=== PATIENT | female | born 1995 | race Caucasian/White ===

== ENCOUNTER 2018-09-15 21:30 | Emergency (ER) | payer SELFPAY ==
[2018-09-15 21:51] VITALS: BP 112/71
[2018-09-15] MEDS ORDERED: ACETAMINOPHEN 500 MG TAB PO ONE (22:07)
[2018-09-15] MEDS ORDERED: IBUPROFEN 800 MG TAB PO ONE (22:08)
[2018-09-15] MEDS ORDERED: CYCLOBENZAPRINE 10 MG TAB PO ONE (22:08)
--- NOTE | 2018-09-15 22:12 | EDPHY ---
H & P Time Seen by Provider: 09/15/18 21:38 HPI/ROS: CHIEF COMPLAINT: Back pain History by patient HISTORY OF PRESENT ILLNESS: 22-year-old woman presents with acute onset left- sided back pain which began yesterday when she lifted a bag of heavy lo litter. She took some ibuprofen and seemed controllable but tonight when she bent down it became much more severe and she could not get comfortable. Pain radiates somewhat into her buttock and left hip. She denies any focal numbness weakness or tingling. There is no electric shock the or shooting pains below her knee. There is no loss of bowel or bladder control. She denies any fever, dysuria urgency frequency or hematuria. She has had a similar episode a few years ago. She tried taking a tramadol this morning and ibuprofen a few hours after that with minimal relief. She has used TENS for her back pain in the past. REVIEW OF SYSTEMS: As in HPI, and all other systems reviewed and are negative Smoking Status: Light smoker Physical Exam: General Appearance: Alert, nontoxic-appearing. Head: Normocephalic, atraumatic Eyes: Pupils equal and round, no pallor or injection. ENT, Mouth: Mucous membranes moist. Neck: No bony tenderness, full range of motion Gastrointestinal: Abdomen is soft and nontender, no masses, bowel sounds normal. Neurological: Awake, alert and oriented x 3, no pronator drift, normal gait, no pronator drift, DTRs 2+ and equal bilaterally in knees and ankles, no pain with straight leg raise, strength is 5/5 and equal bilaterally in lower extremities, sensation is intact and equal bilateral Back: No bony tenderness, positive left lower paraspinal muscle tenderness and mild left upper buttock tenderness Skin: Warm and dry, no rashes. Musculoskeletal: Neck is supple, FROM, nontender. Bilateral hips and knees with full range of motion Extremities: symmetrical, full range of motion. Psychiatric: Patient has normal affect, there is no agitation. Constitutional: Initial Vital Signs Temperature (C) 37.0 C 09/15/18 21:42 Heart Rate 75 09/15/18 21:42 Respiratory Rate 18 09/15/18 21:42 Blood Pressure 112/71 09/15/18 21:42 O2 Sat (%) 96 09/15/18 21:42 O2 Delivery Mode Room Air Allergies/Adverse Reactions: sulfisoxazole [From Gantrisin] Allergy (Verified 11/04/10 14:05) Rash sulfisoxazole acetyl [From Gantrisin] Allergy (Verified 11/04/10 14:05) Rash Home Medications: Medication Instructions Recorded Cyclobenzaprine [Flexeril 10 MG 10 mg PO TID PRN #15 tab 09/15/18 (*)] Lexapro 09/15/18 Meloxicam 7.5 mg PO DAILY #10 tablet 09/15/18 Wellbutrin Sr 09/15/18 MDM/Departure - [facility] ED Course/Re-evaluation: 22-year-old woman presents with acute low back pain with unremarkable exam and no red flags. Patient be treated with anti-inflammatories and Flexeril. We discussed home care. Patient was discharged home in stable condition. - Depart Disposition: Home, Routine, Self-Care Clinical Impression: Acute low back pain Qualifiers: Back pain laterality: left Sciatica presence: without sciatica Qualified Code(s ): M54.5 - Low back pain Condition: Good Instructions: Acute Low Back Pain (ED) Additional Instructions: You were seen by Dr. Emmy Hernandez today. You have a musculoskeletal back pain. You may take meloxicam once daily for your back pain. You may add Flexeril up to every 8 hr as needed as a muscle relaxant. Do not take this while driving, operating heavy machinery or taking alcohol. You may also add acetaminophen (Tylenol) a 1000 mg up to 4 times a day for additional pain control. I recommend light activity instead of complete bedrest as this will loosen up her muscles help you get better quicker. I recommend massage in 3-4 days to help ease up your muscle tightness. Return for any worsening or new concerns. Prescriptions: Cyclobenzaprine [Flexeril 10 MG (*)] 10 mg PO TID PRN #15 tab PRN Reason: Spasms Meloxicam 7.5 mg PO DAILY #10 tablet
== END 2018-09-15 22:20 | disposition home or self-care (01) ==
LOC: CED 21:30
DX: M54.5 Low back pain (principal); G89.11 Acute pain due to trauma